=== PATIENT | male | born 1965 | race Caucasian/White ===

== ENCOUNTER 2025-01-26 20:41 | Emergency (ER) | payer BC ==
[~2025-01-26] VITALS: Ht 170.2 cm; Wt 74.0 kg
[2025-01-27] MEDS ORDERED: SULF1TAB49 PO (01:43)
--- NOTE | 2025-01-27 01:43 | Physician Documentation ---
History of Present Illness ~ Chief Complaint: Wound Re-Check Stated Complaint: WOUNDS Time Seen by MD: 00:29 Mode of Arrival: POV HPI Patient presents to the emergency room with some sores in his abdomen. He states they began last few days. No fevers. States they are similar to a previous infection he had in his wrist that cleared up with antibiotics. Tetanus within 5 years?: No Medication Reconciliation Allergies: Coded Allergies: Penicillins (Verified Allergy, Unknown, 01/26/25) Review of Systems ROS All review of systems negative except as per HPI Physical Exam Vital Signs: Temperature: 96.8, Source: Oral, Heart Rate: 77, Respiratory Rate: 12, BP: 151/102, Pulse Oximetry: 96, Weight: 74.000 Oxygen Flow Rate: 0 Physical Exam General: Patient is awake, alert, oriented x4 in no acute distress and well appearing.~ Head: Normocephalic and atraumatic. Eyes: Conjunctival normal. EOMI. PERRL. ENT: Mucous membranes moist. Neck: Supple, trachea is midline. Chest: Clear to auscultation bilaterally without rales, rhonchi, or wheezes. There is no accessory muscle use or retractions. Cardiac: RRR without murmurs, gallops, or rubs. Abd: Soft, nondistended, two ulcers measuring 3 cm x 3 cm in the other measuring 2 cm x 2 cm on patient's abdomen with associated cellulitis. No fluctuance Progress Results/Orders Results/Orders Vital Signs 01/26/25 01/26/25 01/26/25 01/26/25 20:49 22:11 22:13 23:30 Temp 96.8 96.8 96.8 Pulse 90 80 71 Resp 15 16 14 B/P (MAP) 164/102 156/103 (120) 141/92 (108) Pulse Ox 96 97 93 O2 Flow Rate 0 0 01/27/25 01/27/25 00:30 00:51 Temp 96.8 Pulse 74 77 Resp 15 12 B/P (MAP) 137/91 (106) 151/102 (118) Pulse Ox 97 96 O2 Flow Rate 0 0 Medical Decision Making Additional information obtaine: N/A Findings Patient presented to the emergency room with infection in his abdomen that has per HPI. We will begin antibiotics. ER precautions. I do not feel he requires emergent labs or imaging Differential Dx:Considerations: Include: Abscess, Cellulitis, Dressing change, Healing wound, Other Departure Disposition: HOME / SELF CARE / HOMELESS Impression: Primary Impression: Cellulitis Condition: Stable Discharge Instructions: Cellulitis, Adult Referrals: NO PRIMARY CARE PROVIDER (PCP) Prescriptions Sulfamethoxazole/Trimethoprim (Bactrim Ds Tablet) 800 Mg-160 Mg Tablet 1 TAB PO Q12H for 10 Days, #20 TAB Prov: ANDER ENGEL MD 01/27/25 Signature Scribe Signature: No scribe Attestation: The note accurately reflects work and decisions made by me.Ander Engel MD 01/27/25 01:43 ANDER ENGEL MD Jan 27, 2025 01:43
[2025-01-27] MEDS: ondansetron 4mg rapidly disintigrating tab PO ONE (02:00)
[2025-01-27] MEDS: sulfamethoxazole/trimethoprim DS (800/160mg) tablet PO ONE (02:00)
[2025-01-27 02:01] VITALS: BP 138/85; PULSE 79; RESP 15; TEMP 96.8; O2SAT 97
== END 2025-01-27 02:03 | disposition home or self-care (01) ==
LOC: ER 20:42
DX: L03.311 Cellulitis of abdominal wall (principal); Z88.0 Allergy status to penicillin
CPT/HCPCS: 99285